=== PATIENT | female | born 1975 | race Caucasian/White ===

== ENCOUNTER 2017-07-27 13:39 | Emergency (ER) | payer MEDICAID ==
[~2017-07-27] VITALS: Ht 162.6 cm; Wt 73.5 kg
[~2017-07-27 13:39] MED LIST: GLIP10TA12 PO; IBUP800T99 PO; IRON65TA3 PO; LANTUS SUBQ; LISI-420 PO; METF1000 PO; METF100028 PO
[2017-07-27 13:47] VITALS: BP 162/106
[2017-07-27] MEDS ORDERED: KETOROLAC 60 MG/2 ML VIAL IM ONE (17:00)
--- NOTE | 2017-07-27 17:00 | NUR ---
PT PRESENTS TO ER W/C/O FLU S/SX-BODY ACHES, LBP, CHILLS X2 DAYS. HX DM, HTN. DENIES N/V/D; SKIN IS PINK/WARM/DRY; AAOX4 WITH EVEN AND STEADY GAIT; LUNGS CLEAR BL; HR EVEN AND REGULAR; PT DENIES ANY FEVER, CP, SOB, OR COUGH AT THIS TIME; PATIENT STATES PAIN OF 8/10 AT THIS TIME; PATIENT POSITIONED FOR COMFORT; HOB ELEVATED; BEDRAILS UP X2; BED DOWN. ER MD MADE AWARE OF PT STATUS.
[2017-07-27 18:04] VITALS: BP 164/91
--- NOTE | 2017-07-27 18:04 | NUR ---
Patient discharged with BP 164/91;DENIES HEADACHE OR DIZINESS; MD MADE AWARE. Written and verbal after care instructions given and explained. Patient alert, oriented and verbalized understanding of instructions. Ambulatory with steady gait. All questions addressed prior to discharge. ID band removed. Patient advised to follow up with PMD. Rx of NORCO, ZOFRAN & MOTRIN given. Patient educated on indication of medication including possible reaction and side effects. Opportunity to ask questions provided and answered.
== END 2017-07-27 18:04 | disposition home or self-care (01) ==
LOC: MED 13:39
DX: R10.9 Unspecified abdominal pain (principal); R11.2 Nausea with vomiting, unspecified; E11.9 Type 2 diabetes mellitus without complications; I10 Essential (primary) hypertension; Z90.710 Acquired absence of both cervix and uterus
CPT/HCPCS: 81002; 81025; 96372; 99283; J1885

== ENCOUNTER 2017-11-13 17:15 | Emergency (ER) | payer MEDICAID ==
[~2017-11-13 17:15] MED LIST changes: +FERR-212 PO; +IBUP-2218 PO; -IBUP800T99 PO; -IRON65TA3 PO
--- NOTE | 2017-11-13 18:05 | NUR ---
CALLED TWICE ON THE LOBBY AND OUTSIDE NO RESPONSE; JOVANNI
== END 2017-11-13 18:05 | disposition left against medical advice (07) ==
LOC: MED 17:15
DX: Z53.21 Procedure and treatment not carried out due to patient leaving prior to being seen by health care provider (principal)

== ENCOUNTER 2017-11-26 19:35 | Emergency (ER) | payer MEDICAID ==
[~2017-11-26] VITALS: Ht 162.6 cm; Wt 76.2 kg
[2017-11-26 19:55] VITALS: BP 152/90
[2017-11-26 21:18] VITALS: BP 150/88
== END 2017-11-26 21:15 | disposition home or self-care (01) ==
LOC: MED 19:35
DX: M25.562 Pain in left knee (principal)
CPT/HCPCS: 73562; 73630; 99284

== ENCOUNTER 2019-04-27 21:14 | Emergency (ER) | payer MEDICAID, OTHER ==
[~2019-04-27] VITALS: Ht 162.6 cm; Wt 79.4 kg
[2019-04-27 21:20] VITALS: BP 197/108
--- NOTE | 2019-04-27 21:20 | NUR ---
TO BED # 04 VIA WHEELCHAIR
--- NOTE | 2019-04-27 21:25 | NUR ---
44 YO FEMALE COMES TO ED WITH FOR C/O R SIDED NUMBNESS, PT STATES SHE HAS DECREASED SENSATION TO R SIDE OF FACE AND ARM. PT STATES SHE ALSO HAD X1 EPISODE OF LOW BLOOD SUGAR 40. RECHECKED 172 NOW. PT HAS UNEQUAL STRENGTH R SIDE WEAKER THAN LEFT. DENIES FEVER CHILLS. DENIES N/V/D. PT AAOX4 FOLLOWING COMMANDS. S1 S2 NO EDEMA NOTED. LUNGS CLEAR EVEN UNLABORED. ABD SOFT NON DISTENDED. SKIN INTACT. INSULIN PUMP NOTED. JODEE LOCKED IN LOWEST POSITION. PMH: HTN, DM TYPE 1, NEUROPATHY NKA
--- NOTE | 2019-04-27 21:40 | NUR ---
Dr. Velasquez evaluating patient at bedside.
[2019-04-27] MEDS ORDERED: NACL 0.9% 1,000 ML IV ONE (21:45)
[2019-04-27] MEDS ORDERED: hydrALAZINE 20 MG/ML VIAL IVP ONE (21:45)
[2019-04-27 22:05] LABS: BASOPHILS % (AUTO) 0.7 % (0.0-2.0); EOSINOPHILS # (AUTO) 0.1 K/uL (0-0.4); EOSINOPHILS % (AUTO) 2.2 % (0.0-4.0); HEMATOCRIT 38.4 % (36-48); HEMOGLOBIN 12.7 g/dL (12.0-16.0); LYMPHOCYTES # (AUTO) 2.1 K/uL (2.5-16.5); MEAN CORPUSCULAR HEMOGLOBIN 28 pg (27-31); MEAN CORPUSCULAR HGB CONC 33 g/dL (33-37); MEAN CORPUSCULAR VOLUME 85.8 fL (80-94); MONOCYTES # (AUTO) 0.4 K/uL (0.8-1.0); MONOCYTES % (AUTO) 5.5 % (1.7-9.3); NEUTROPHILS # (AUTO) 3.9 K/uL (1.8-7.7); NEUTROPHILS % (AUTO) 59.6 % (42.2-75.2); PLATELET COUNT (AUTO) 250 K/uL (140-450); RED BLOOD CELL COUNT(AUTO) 4.48 MIL/uL (4.20-5.40); RED CELL DISTRIBUTION WIDTH 14.1 % (11.6-13.7); WHITE BLOOD COUNT (AUTO) 6.6 K/uL (4.8-10.8)
--- NOTE | 2019-04-27 22:10 | NUR ---
l forearm 22g started, patent, blood return noted.
[2019-04-27 22:27] LABS: ALBUMIN 3.7 g/dL (3.4-5.0); ANION GAP 13.2 (8-16); CREATININE 0.9 mg/dL (0.6-1.3); POTASSIUM 3.2 mmol/L (3.5-5.1); TOTAL BILIRUBIN 0.3 mg/dL (0.0-1.0)
--- NOTE | 2019-04-27 22:34 | NUR ---
PT RETURN FROM RAD
[2019-04-27 22:40] LABS: APPEARANCE,URINE CLEAR (CLEAR); BILIRUBIN,URINE NEGATIVE (NEGATIVE); BLOOD, URINE NEGATIVE (NEGATIVE); COLOR,URINE YELLOW (YELLOW); LEUKOCYTE ESTERASE ,URINE NEGATIVE (NEGATIVE); NITRITE, URINE NEGATIVE (NEGATIVE); PH,URINE 6.5 (5.0-9.0); UGLUCOSE NEGATIVE (NEGATIVE)
[2019-04-27 22:45] LABS: BARBITURATE, URINE NEG. ng/ml (NEG <=200); BENZODIAZEPINE, URINE NEG. ng/mL (NEG <=200); CANNABINOID, URINE NEG. ng/mL (NEG <=50); COCAINE, URINE NEG. ng/mL (NEG <=300); OPIATE, URINE NEG. ng/mL (NEG <=2000); PHENCYCLIDINE SCREEN,URINE NEG. ng/mL (NEG <=25)
[2019-04-27] MEDS ORDERED: POTASSIUM CHLORIDE 10 MEQ TABER PO ONE (22:50)
[2019-04-27 22:53] LABS: RBC,URINE 0-5 /HPF (0-5); WBC,URINE 0-5 /HPF (0-5)
--- NOTE | 2019-04-27 23:45 | NUR ---
Patient discharged with v/s stable. Written and verbal after care instructions given and explained. Patient verbalized understanding. Ambulatory with steady gait. All questions addressed prior to discharge. Advised to follow up with PMD.
[2019-04-27 23:59] VITALS: BP 135/60
--- NOTE | 2019-04-29 12:36 | NUR ---
Late entry. Confirmed with the RN that 1000 ml 0.9 NS IV was completed at 2240
== END 2019-04-27 23:45 | disposition home or self-care (01) ==
LOC: MED 21:14
DX: E87.6 Hypokalemia (principal); E11.40 Type 2 diabetes mellitus with diabetic neuropathy, unspecified; I10 Essential (primary) hypertension; Z79.4 Long term (current) use of insulin; Z79.899 Other long term (current) drug therapy
CPT/HCPCS: 36415; 70450; 80053; 80305; 81001; 85025; 96374; 99284; J0360; J7030

== ENCOUNTER 2019-08-11 07:28 | Emergency (ER) | payer OTHER ==
[~2019-08-11] VITALS: Ht 162.6 cm; Wt 80.7 kg
[2019-08-11 07:37] VITALS: BP 140/73
[2019-08-11 08:19] VITALS: BP 140/73
== END 2019-08-11 08:20 | disposition home or self-care (01) ==
LOC: MED 07:28
DX: T81.9XXA Unspecified complication of procedure, initial encounter (principal); H92.01 Otalgia, right ear; R05 Cough; R50.9 Fever, unspecified; R11.2 Nausea with vomiting, unspecified; E11.9 Type 2 diabetes mellitus without complications; I10 Essential (primary) hypertension; Z79.4 Long term (current) use of insulin; Z79.899 Other long term (current) drug therapy; Z98.890 Other specified postprocedural states; Y83.8 Other surgical procedures as the cause of abnormal reaction of the patient, or of later complication, without mention of misadventure at the time of the procedure
CPT/HCPCS: 99283

== ENCOUNTER 2020-03-01 19:30 | Emergency (ER) | payer OTHER ==
[~2020-03-01] VITALS: Ht 160 cm; Wt 83.5 kg
[2020-03-01 19:37] VITALS: BP 149/119
--- NOTE | 2020-03-01 19:43 | NUR ---
NEGATIVE COVID SCREEN. PT WEARING MASK.
[2020-03-01 19:45] VITALS: BP 149/119
[2020-03-01] MEDS ORDERED: NACL 0.9% 500 ML IV ONE (19:45)
--- NOTE | 2020-03-01 19:45 | NUR ---
PT TAKEN TO BED 5
--- NOTE | 2020-03-01 19:45 | NUR ---
PT DENIES ANY SOB, COUGH, FEVER, OR ANYONE THATS SICK.
--- NOTE | 2020-03-01 19:45 | NUR ---
45Y/O FEMALE C/O HIGH BLOOD SUGAR X 2 DAYS. PT STATES SHE HAS BODY ACHES AND RATES IT 6/10 AND DESCRIBES IT SORE AND ACHING. +VOMITING (>6 EPISODES). ABD IS ROUND, SOFT, NONTENDER. DENIES ANY DYSURIA. PT STATES SHE ALSO WEAK AND LETHARGIC. STEADY GAIT. LUNG SOUNDS CLEAR AND HEART SOUND S1S2 PRESENT. VSS. NO DISTRESS NOTED. A&O X4. BS 406. SKIN DRY, AND WARM. PMH: TYPE 1 DIABETES, HTN, DKA. NKA.
--- NOTE | 2020-03-01 19:51 | NUR ---
Dr. Leonard examining patient.
[2020-03-01] MEDS ORDERED: KETOROLAC 30 MG/ML VIAL IVP ONE (19:55)
[2020-03-01] MEDS ORDERED: ONDANSETRON 4 MG/2 ML VIAL IVP ONE (19:55)
--- NOTE | 2020-03-01 20:21 | NUR ---
X-Ray at bedside.
[2020-03-01 20:28] LABS: APPEARANCE,URINE HAZY (CLEAR); BILIRUBIN,URINE NEGATIVE (NEGATIVE); BLOOD, URINE NEGATIVE (NEGATIVE); COLOR,URINE YELLOW (YELLOW); LEUKOCYTE ESTERASE ,URINE NEGATIVE (NEGATIVE); NITRITE, URINE NEGATIVE (NEGATIVE); UGLUCOSE 3+ (NEGATIVE)
[2020-03-01 20:30] LABS: BASOPHILS % (AUTO) 0.4 % (0.0-2.0); EOSINOPHILS # (AUTO) 0.2 K/uL (0-0.4); EOSINOPHILS % (AUTO) 2.7 % (0.0-4.0); HEMATOCRIT 38.8 % (36-48); HEMOGLOBIN 12.9 g/dL (12.0-16.0); LYMPHOCYTES # (AUTO) 1.8 K/uL (2.5-16.5); LYMPHOCYTES % (AUTO) 31.3 % (20.5-51.1); MEAN CORPUSCULAR HEMOGLOBIN 29 pg (27-31); MEAN CORPUSCULAR HGB CONC 33 g/dL (33-37); MEAN CORPUSCULAR VOLUME 85.4 fL (80-94); MONOCYTES # (AUTO) 0.2 K/uL (0.8-1.0); MONOCYTES % (AUTO) 4.1 % (1.7-9.3); NEUTROPHILS # (AUTO) 3.6 K/uL (1.8-7.7); NEUTROPHILS % (AUTO) 61.5 % (42.2-75.2); PLATELET COUNT (AUTO) 257 K/uL (140-450); RED BLOOD CELL COUNT(AUTO) 4.54 MIL/uL (4.20-5.40); RED CELL DISTRIBUTION WIDTH 14.2 % (11.6-13.7); WHITE BLOOD COUNT (AUTO) 5.9 K/uL (4.8-10.8)
[2020-03-01 20:35] LABS: ACETONE, SERUM NEGATIVE (NEGATIVE)
[2020-03-01 20:42] LABS: ALBUMIN 3.4 g/dL (3.4-5.0); ANION GAP 15.7 (8-16); ASPARTATE AMINOTRANSFERASE 12 U/L (15-37); CARBON DIOXIDE 25.9 mmol/L (21-32); CHLORIDE 103 mmol/L (98-107); GFR ARICAN-AMERICAN 77 mL/min (>90); GLUCOSE 371 mg/dL (74-106); POTASSIUM 3.6 mmol/L (3.5-5.1); SODIUM SERUM 141 mmol/L (136-145); TOTAL BILIRUBIN 0.1 mg/dL (0.0-1.0); UREA NITROGEN, BLOOD 13 mg/dL (7-18)
[2020-03-01] MEDS ORDERED: INSULIN REGULAR, HUMAN 100 UNIT/ML VIAL IVP ONE (20:50)
--- NOTE | 2020-03-01 21:33 | NUR ---
Kaylah edmonds in ED - 03/01/20 at 2133 by [facility] bs sugar 182 now. charo garza aware. no new orders at this time.
--- NOTE | 2020-03-01 21:33 | NUR ---
accu check 182 now. charo garza aware. no new orders at this time.
== END 2020-03-01 22:10 | disposition home or self-care (01) ==
LOC: MED 19:30
DX: E11.65 Type 2 diabetes mellitus with hyperglycemia (principal); D64.9 Anemia, unspecified; I10 Essential (primary) hypertension; Z79.4 Long term (current) use of insulin; Z79.899 Other long term (current) drug therapy
CPT/HCPCS: 36415; 36600; 71045; 80053; 81003; 82009; 82803; 84484; 85025; 87040; 93005; 96361; 96374; 96375; 99285; J1815; J1885; J2405; J7030; Q0092

== ENCOUNTER 2020-08-20 19:21 | Observation (INO) | payer OTHER ==
[~2020-08-20] VITALS: Ht 162.6 cm; Wt 79.8 kg
--- NOTE | 2020-08-20 19:50 | NUR ---
PT TAKEN TO BED 8
[2020-08-20 19:51] VITALS: BP 159/89
--- NOTE | 2020-08-20 20:00 | NUR ---
COMPLETE ASSESSMENT COMPLETED AT 1999 45 y/o female presented to the ER c/o dizziness, chills and fainting. The pt stated that she had dinner and within 30 minutes became nausea and had one episode of vomitting. Pt has had an insulin pump x 4 years. Pt is not c/o any other GI symptoms. Pt denies fever, ABD pain, and headaches. Pt denies OTC meds. Pt denies any recent surgeries. Pt is laying down in bed, bed is in lowest position, pt is in no acute distress at this time. PMH: DM, and hypertension, 2 episode of DKA NKA
--- NOTE | 2020-08-20 20:00 | NUR ---
Dr. Aragon examining patient.
[2020-08-20] MEDS ORDERED: NACL 0.9% 1,000 ML IV ONE ×2 (20:05→21:15)
--- NOTE | 2020-08-20 20:05 | NUR ---
Blood labs were collected and handed off to lab.
--- NOTE | 2020-08-20 20:17 | NUR ---
PT AMBULATED TO RESTROOM W/ STEADY GAIT.
--- NOTE | 2020-08-20 20:19 | NUR ---
PT AMBULATED TO ER BED 8 W/ STEADY GAIT.
--- NOTE | 2020-08-20 20:20 | NUR ---
Urine sample was collected.
[2020-08-20 20:24] LABS: BASOPHILS # (AUTO) 0.1 K/uL (0.00-0.22); BASOPHILS % (AUTO) 0.9 % (0.0-2.0); EOSINOPHILS # (AUTO) 0.2 K/uL (0-0.4); EOSINOPHILS % (AUTO) 2.1 % (0.0-4.0); HEMATOCRIT 41.6 % (36-48); HEMOGLOBIN 13.9 g/dL (12.0-16.0); LYMPHOCYTES # (AUTO) 1.7 K/uL (2.5-16.5); LYMPHOCYTES % (AUTO) 20.2 % (20.5-51.1); MEAN CORPUSCULAR HEMOGLOBIN 29 pg (27-31); MEAN CORPUSCULAR HGB CONC 34 g/dL (33-37); MEAN CORPUSCULAR VOLUME 85.3 fL (80-94); MONOCYTES # (AUTO) 0.4 K/uL (0.8-1.0); MONOCYTES % (AUTO) 5.3 % (1.7-9.3); NEUTROPHILS # (AUTO) 5.9 K/uL (1.8-7.7); NEUTROPHILS % (AUTO) 71.5 % (42.2-75.2); PLATELET COUNT (AUTO) 251 K/uL (140-450); RED BLOOD CELL COUNT(AUTO) 4.88 MIL/uL (4.20-5.40); RED CELL DISTRIBUTION WIDTH 14.2 % (11.6-13.7); WHITE BLOOD COUNT (AUTO) 8.2 K/uL (4.8-10.8)
[2020-08-20 20:35] LABS: CARBON DIOXIDE 20.3 mmol/L (21-32); POTASSIUM 4.3 mmol/L (3.5-5.1)
--- NOTE | 2020-08-20 21:15 | NUR ---
PT FIRST NS BOLUS STILL RUNNING AT THIS TIME. WILL ADMINISTER NEW NS BOLUS ORDER ONCE COMPLETED.
[2020-08-20 22:35] LABS: ANION GAP 13.8 (8-16); CARBON DIOXIDE 23.3 mmol/L (21-32); CREATININE 0.7 mg/dL (0.6-1.3); POTASSIUM 4.1 mmol/L (3.5-5.1)
--- NOTE | 2020-08-20 23:35 | NUR ---
Pt's called, notified that she is still under our care and that her vital signs are stable.
--- NOTE | 2020-08-20 23:40 | NUR ---
Pt requested a road test, pt walked outside of room with assistance of 2 RNs. Pt c/o feeling hot, lightheaded, and swaying. Pt returned to bed immediately. DORA made aware. Addendum: 08/20/20 at 2352 by [facility] DORA requested a road test, pt walked outside of room with assistance of 2 RNs. Pt c/o feeling hot, lightheaded, and swaying. Pt returned to bed immediately. DORA made aware.
[2020-08-21] MEDS ORDERED: AMOX500C25 PO (00:24)
[2020-08-21] MEDS ORDERED: AMIT10TA25 PO (00:24)
[2020-08-21] MEDS ORDERED: [UNRECOGNIZED DRUG - CODE] PO (00:24)
[2020-08-21] MEDS ORDERED: LISI30TA6 PO (00:24)
[2020-08-21] MEDS ORDERED: IBUP-2213 PO (00:24)
[2020-08-21] MEDS ORDERED: NACL 0.9% 1,000 ML IV ONE (00:25)
[2020-08-21] MEDS ORDERED: MECLIZINE 25 MG TAB PO ONE (00:25)
[2020-08-21] MEDS ORDERED: ACETAMINOPHEN 325 MG TAB PO PRN (00:40)
[2020-08-21] MEDS ORDERED: ONDANSETRON 4 MG/2 ML VIAL IVP PRN (00:40)
[2020-08-21] MEDS ORDERED: MORPHINE SULFATE 2 MG/ML SYR IVP PRN (00:40)
[2020-08-21] MEDS ORDERED: INSULIN LISPRO SLIDING SCALE 100 UNITS/ML VIAL SUBQ PRN (00:45)
[2020-08-21] MEDS ORDERED: DEXTROSE 50% 50 ML SYR IVP PRN (00:45)
[2020-08-21] MEDS ORDERED: MECLIZINE 25 MG TAB PO PRN (00:45)
--- NOTE | 2020-08-21 01:20 | NUR ---
covering for relief for primary RN Roxann, assumed pt care at this time.
[2020-08-21 02:00] VITALS: BP 165/94
--- NOTE | 2020-08-21 02:00 | NUR ---
Patient will be admitted to care of [facility]. Admited to TELEMETRY. Will go to room 120B. Belongings list completed. Report to LUIS POSADAS RN.
--- NOTE | 2020-08-21 02:00 | NUR ---
ADMITTED THE PATIENT FROM ER BY JODEE. PATIENT A/A/OX4, AMBULATORY. DENIES ANY CHEST PAIN, SOB, PALPITATIONS AND STATED THAT SHE GETS DIZZY WHEN SHE GETS OUT OF BED. PT BLOOD PRESSURE HIGH 165/94, HR-86, SATING 97% ON RA, AFEBRILE. 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 ORIENTED THE PT TO THE ROOM SETTING AND USE OF CALL LIGHT SYSTEM. FALL PRECAUTION IMPLEMENTED. INSTRUCTED TO CALL FOR ASSISTANCE WHEN GETTING OUT OF BED. PATIENT VERBALIZED UNDERSTANDING WITH THE POC. CALL LIGHT KIMMY REACH. WILL CONTINUE MONITORING AND POC.
[2020-08-21] MEDS: NACL 0.9% 1,000 ML IV SCH ×2 (03:47→10:49)
--- NOTE | 2020-08-21 04:00 | NUR ---
STARTED IVF NS @ 100 CC/HR ORDERED.PT HAS NO COMPLAIN AT THIS TIME AND CURRENTLY SLEEPING. CALL LIGHT WITHIN REACH.
[2020-08-21 05:47] VITALS: BP 121/60
--- NOTE | 2020-08-21 06:09 | NUR ---
NO ACUTE EVENT THROUGHOUT THE NIGHT. PATIENT STABLE. ALL NEEDS ATTENDED. NO COMPLAIN AT THIS TIME. WILL ENDORSE THE PT TO THE ONCOMING RN FOR CONTINUITY OF CARE. CALL LIGHT WITHIN REACH.
[2020-08-21] MEDS: BLOOD GLUCOSE MONITORING 1 DEV DEV FS SCH ×2 (06:30→11:40)
--- NOTE | 2020-08-21 07:10 | NUR ---
RECEIVED REPORT FROM NIGHT RN. PT IN BED. AOX4, NO C/O PAIN, NO DIZZINESS, NO SOB NOTED. IV RAC 20G INFUSING IVF ORDERED. ON ROOM AIR. SR ON SENIOR WEALTH ADVISOR. FALL PRECAUTION IMPLEMENTED. INSTRUCTED THE PT TO CALL FOR ASSISTANCE AT ALL TIMES WHEN GETTING OUT OF BED. PATIENT VERBALIZED UNDERSTANDING. CALL LIGHT WITHIN REACH. WILL CONTINUE TO MONITORING.
[2020-08-21 08:00] VITALS: BP 118/71
--- NOTE | 2020-08-21 08:42 | NUR ---
PATIENT HAS BEEN SCREENED AND CATEGORIZED HIGH NUTRITION RISK. PATIENT WILL BE SEEN WITHIN 1-2 DAYS OF ADMISSION. 08/21/20-08/22/[address]
[2020-08-21] MEDS ORDERED: ENOXAPARIN 40 MG/0.4 ML SYR SUBQ SCH (09:00)
--- NOTE | 2020-08-21 09:00 | NUR ---
DUE MEDS GIVEN TOLERATED WELL
--- NOTE | 2020-08-21 11:20 | NUR ---
PT IN BED. NO COMPLAINTS AT THIS TIME. NO APPARENT DISTRESS
--- NOTE | 2020-08-21 11:41 | NUR ---
DC PLANN[age] YRS OLD FEMALE PATIENT WAS ADMITTED FROM HOME WITH A DX OF HYPERGLYCEMIA. PT HAS A HX OF DM, HTN AND OBESITY.BLOOD SUGAR ON ADMISSION 402 ADMINISTERED INSULIN AND IVF. BLOOD SUGAR IS 176 TODAY. DC PLAN TO GO HOME AND FOLLOW UP WITH PCP IN 7 DAYS. STABLE FOR DISCHARGE. 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 KELSEY [phone]. APPOINTMENT IS SCHEDULED FOR August AT 11:00 AM
[2020-08-21 12:00] VITALS: BP 120/75
--- NOTE | 2020-08-21 14:30 | NUR ---
DISCHARGE ORDER NOTED. DISCHARGE INSTRUCTIONS AND PRESCRIPTION GIVEN. VERBALIZED UNDERSTANDING. REMOVED IV WITH LUMEN INTACT. ID BAND REMOVED
--- NOTE | 2020-08-21 14:50 | NUR ---
ASSISTED TO FRONT LOBBY. PICKED UP BY
== END 2020-08-21 14:50 | disposition home or self-care (01) ==
LOC: MED 19:21 → MTU 08-21 01:31
PROVIDERS: ADMIT Internal Medicine Pulmonary Disease; ATTEND Internal Medicine Pulmonary Disease
DX: E11.65 Type 2 diabetes mellitus with hyperglycemia (principal); N17.9 Acute kidney failure, unspecified; E87.2 Acidosis; E66.9 Obesity, unspecified; I10 Essential (primary) hypertension; Z96.41 Presence of insulin pump (external) (internal); Z79.4 Long term (current) use of insulin; Z79.899 Other long term (current) drug therapy; Z68.30 Body mass index [BMI] 30.0-30.9, adult
CPT/HCPCS: 36415; 80048; 82948; 83036; 84484; 85025; 87081; 93005; 96360; 96361; 96372; 99285; G0378; J1650; J8597

== ENCOUNTER 2020-11-05 20:58 | Emergency (ER) | payer OTHER ==
[~2020-11-05] VITALS: Ht 162.6 cm; Wt 78.9 kg
[~2020-11-05 20:58] MED LIST changes: +AMIT10TA25 PO; +AMOX500C25 PO; -FERR-212 PO; -GLIP10TA12 PO; +IBUP-2213 PO; -IBUP-2218 PO; -LANTUS SUBQ; -LISI-420 PO; +LISI30TA6 PO; -METF1000 PO; -METF100028 PO; +[UNRECOGNIZED DRUG - CODE] PO
[2020-11-05 21:10] VITALS: BP 160/90
--- NOTE | 2020-11-05 21:13 | NUR ---
TO LOBBY A/W BED VIA W/C
--- NOTE | 2020-11-05 21:18 | NUR ---
SEEN AND EXAMINED BY ERMD WITH ORDER.
[2020-11-05 21:50] VITALS: BP 160/90
--- NOTE | 2020-11-05 21:50 | NUR ---
Patient discharged with v/s stable. Written and verbal after care instructions given and explained. Patient verbalized understanding. Wheel Chair Assisted with to car. All questions addressed prior to discharge. Advised to follow up with PMD.
== END 2020-11-05 21:50 | disposition home or self-care (01) ==
LOC: MED 20:58
DX: T25.131A Burn of first degree of right toe(s) (nail), initial encounter (principal); E11.9 Type 2 diabetes mellitus without complications; I10 Essential (primary) hypertension; Z79.899 Other long term (current) drug therapy; X10.2XXA Contact with fats and cooking oils, initial encounter; Y93.89 Activity, other specified; Y92.89 Other specified places as the place of occurrence of the external cause; Y99.8 Other external cause status
CPT/HCPCS: 99282

== ENCOUNTER 2020-11-14 19:14 | Emergency (ER) | payer OTHER ==
[~2020-11-14] VITALS: Ht 162.6 cm; Wt 80.7 kg
[2020-11-14 19:32] VITALS: BP 151/92
--- NOTE | 2020-11-14 19:50 | NUR ---
ERMD EVALUATING PATIENT IN CHAIR.
--- NOTE | 2020-11-14 19:55 | NUR ---
PT ASSESSMENT COMPLETED BY DORA BOBO , NO NURSING INTERVENTIONS NEEDED AT THIS TIME.
[2020-11-14 20:08] VITALS: BP 151/92
--- NOTE | 2020-11-14 20:08 | NUR ---
Patient discharged with v/s stable. Written and verbal after care instructions given and explained. Patient alert, oriented and verbalized understanding of instructions. Ambulatory with steady gait. All questions addressed prior to discharge. ID band removed. Patient advised to follow up with PMD. Rx of Clindamycin & EMLA Topical Cream given. Patient educated on indication of medication including possible reaction and side effects. Opportunity to ask questions provided and answered.
[2020-11-14] MEDS ORDERED: VANCOMYCIN 1,000 MG in DEXTROSE 5% 250 ML IV ONE (20:15)
== END 2020-11-14 20:08 | disposition home or self-care (01) ==
LOC: MED 19:14
DX: T25.231A Burn of second degree of right toe(s) (nail), initial encounter (principal); T25.131A Burn of first degree of right toe(s) (nail), initial encounter; L03.115 Cellulitis of right lower limb; I10 Essential (primary) hypertension; E11.9 Type 2 diabetes mellitus without complications; Z79.899 Other long term (current) drug therapy; X08.8XXA Exposure to other specified smoke, fire and flames, initial encounter; Y93.89 Activity, other specified; Y92.89 Other specified places as the place of occurrence of the external cause; Y99.8 Other external cause status
CPT/HCPCS: 99283

== ENCOUNTER 2021-01-01 19:04 | Emergency (ER) | payer OTHER ==
[~2021-01-01] VITALS: Ht 157.5 cm; Wt 74.4 kg
[2021-01-01 19:36] VITALS: BP 159/84
--- NOTE | 2021-01-01 19:43 | NUR ---
TRIAGED IN TENT 1 AWAITING TO BE MOVED TO BED.
--- NOTE | 2021-01-01 19:56 | NUR ---
MOVED FROM TENT TO BED 1.
--- NOTE | 2021-01-01 20:05 | NUR ---
TO BED 1 AMBULATORY FROM TENT WITH C/O RUNNY NOSE AND BODY ACHES X 5 DAYS. NASAL CONGESTION IS NOTED. RESPIRATIONS ARE REGULAR AND UNLABORED.
--- NOTE | 2021-01-01 21:05 | NUR ---
IINFLUENZ A & B SWAB OBTAINED, SENT TO LAB
[2021-01-01 22:11] VITALS: BP 159/84
== END 2021-01-01 22:11 | disposition home or self-care (01) ==
LOC: MED 19:04
DX: J06.9 Acute upper respiratory infection, unspecified (principal); E11.9 Type 2 diabetes mellitus without complications; I10 Essential (primary) hypertension; D64.9 Anemia, unspecified; Z79.899 Other long term (current) drug therapy
CPT/HCPCS: 87804; 99283

== ENCOUNTER 2021-09-30 12:31 | Emergency (ER) | payer OTHER ==
[~2021-09-30] VITALS: Ht 162.6 cm; Wt 86.2 kg
[2021-09-30 12:38] VITALS: BP 151/89
[2021-09-30] MEDS ORDERED: COROTSOL RIGHT EAR (13:23)
[2021-09-30 13:32] VITALS: BP 137/77
--- NOTE | 2021-09-30 13:33 | NUR ---
Patient discharged with v/s stable. Written and verbal after care instructions given OTTIS EXTERNA and explained. Patient alert, oriented and verbalized understanding of instructions. Ambulatory with steady gait. All questions addressed prior to discharge. ID band removed. Patient advised to follow up with PMD. Rx of CORTISPORIN given. Patient educated on indication of medication including possible reaction and side effects. Opportunity to ask questions provided and answered.
== END 2021-09-30 13:32 | disposition home or self-care (01) ==
LOC: MED 12:31
DX: H60.91 Unspecified otitis externa, right ear (principal); E11.9 Type 2 diabetes mellitus without complications; I10 Essential (primary) hypertension; Z79.4 Long term (current) use of insulin; Z79.899 Other long term (current) drug therapy
CPT/HCPCS: 99283